=== PATIENT | male | born 1955 | race Caucasian/White ===

== ENCOUNTER 2020-02-14 08:07 | Outpatient (CLI) | payer OTHER, SELFPAY ==
--- NOTE | ~2020-02-14 | XR_ITS ---
EXAMINATION: XR chest 2V DATE: 02/14/2020 09:31 INDICATION: Asthma. Preop. TECHNIQUE: Frontal and lateral views of the chest were obtained. COMPARISON: Chest 2 views 01/02/2019 FINDINGS: There is mild atelectasis at the lung bases. No pleural effusion or pneumothorax. The heart size is normal. IMPRESSION: 1. Mild atelectasis at the lung bases. Reviewed, dictated and finalized at location B. HAND
--- NOTE | 2020-02-14 09:06 | ECG_ITS ---
Measurements Intervals [place] Rate: 53 P: 36 KS: 157 QRS: 2 QRSD: 106 T: 12 QT: 398 QTc: 375 Interpretive Statements SINUS BRADYCARDIA BASELINE ARTIFACT- I, II, III, AVR, AVL, AVF, V3 BORDERLINE ECG Electronically Signed On 02-14-2020 14:41:26 CONSTRUCTION ADMINISTRATIVE ASSISTANT by Zana Velez D.O.
[2020-02-14 10:08] LABS: Basophils Percent Auto 0.2 % (0.2-1.2); Eosinophils Absolute Auto 0.3 K/mm3 (0-0.3); Eosinophils Percent Auto 4.6 % (0-4.4); Hematocrit 42.5 % (42.0-52.0); Hemoglobin 14.8 g/dL (14.0-18.0); Immature Granulocyte Absolute 0.03 K/mm3 (0.00-0.031); Immature Granulocyte Percent A 0.5 % (0-0.5); Lymphocytes Absolute Auto 1.44 K/mm3 (0.9-3.2); Lymphocytes Percent Auto 22.3 % (18.3-44.2); Mean Corpuscular HGB Conc 34.8 g/dl (32-36); Mean Corpuscular Hemoglobin 35.2 pg (26-34); Mean Platelet Volume 9.6 fl (7.4-10.4); Monocytes Absolute Auto 0.8 K/mm3 (0.1-0.6); Monocytes Percent Auto 12.4 % (2.6-8.5); Neutrophils Absolute Auto 3.9 K/mm3 (1.3-6.7); Platelet Count Result 219 k/mm3 (150-375); Red Blood Count 4.21 M/mm3 (4.6-6.20); White Blood Count 6.5 K/mm3 (4.5-10.0)
[2020-02-14 10:22] LABS: Albumin Level 4.2 g/dL (3.5-5.1); Anion Gap 7 mmol/L (8-16); Blood Urea Nitrogen 13 mg/dL (9-20); Calcium 8.8 mg/dL (8.4-10.2); Carbon Dioxide 30 mmol/L (22-30); Chloride 103 mmol/L (98-107); Estimated Glomerular Filt Rate > 60; Glucose 84 mg/dL (75-110); Potassium 4.1 mmol/L (3.4-5.0); Sodium 140 mmol/L (137-145); Urine Cotinine NEGATIVE
[2020-02-14 11:07] LABS: Hemoglobin A1C 5.2 % (<5.7)
== END 2020-02-14 08:08 | disposition home or self-care (01) ==
LOC: ANHSURGERY 08:12
PROVIDERS: PCP Family Medicine; Visit Provider Orthopaedic Surgery
DX: M17.11 Unilateral primary osteoarthritis, right knee (principal); Z01.818 Encounter for other preprocedural examination; R91.8 Other nonspecific abnormal finding of lung field
CPT/HCPCS: 71046; 80048; 80307; 82040; 83036; 85025; 87070; 93005

== ENCOUNTER 2020-04-28 12:45 | Outpatient (CLI) | payer OTHER, SELFPAY ==
--- NOTE | ~2020-04-28 | XR_ITS ---
EXAMINATION: XR chest 2V EXAM DATE: 04/28/2020 09:27 INDICATION: M17.11 - Unilateral primary osteoarthritis, right knee/ HBP. TECHNIQUE: Frontal and lateral projections of the chest obtained and reviewed. Comparison is made to prior examination from 02/14/2020. FINDINGS: Small amount of basilar scarring/atelectasis unchanged. The lungs are otherwise clear. The re are no pleural effusions. The cardiomediastinal silhouette is within normal limits. There is no pneumothorax suspected. The bones and soft tissues are unremarkable. IMPRESSION: No acute cardiopulmonary findings. Reviewed, dictated and finalized at location A. DESIGN DRAFTSPERSON
[2020-04-28 09:30] LABS: Basophils Percent Auto 0.2 % (0.2-1.2); Eosinophils Absolute Auto 0.5 K/mm3 (0-0.3); Eosinophils Percent Auto 9.3 % (0-4.4); Hematocrit 42.4 % (42.0-52.0); Hemoglobin 14.8 g/dL (14.0-18.0); Immature Granulocyte Absolute 0.01 K/mm3 (0.00-0.031); Immature Granulocyte Percent A 0.2 % (0-0.5); Lymphocytes Absolute Auto 1.49 K/mm3 (0.9-3.2); Lymphocytes Percent Auto 26.6 % (18.3-44.2); Mean Corpuscular HGB Conc 34.9 g/dl (32-36); Mean Corpuscular Hemoglobin 35.6 pg (26-34); Mean Corpuscular Volume 101.9 fl (80-100); Mean Platelet Volume 9.5 fl (7.4-10.4); Monocytes Absolute Auto 0.6 K/mm3 (0.1-0.6); Monocytes Percent Auto 11.2 % (2.6-8.5); Neutrophils Percent Auto 52.5 % (45.5-73.1); Platelet Count Result 201 k/mm3 (150-375); Red Blood Count 4.16 M/mm3 (4.6-6.20); Red Cell Distribution Width 13.5 % (11.5-14.5); White Blood Count 5.6 K/mm3 (4.5-10.0)
[2020-04-28 09:43] LABS: Anion Gap 5 mmol/L (8-16); Blood Urea Nitrogen 15 mg/dL (9-20); Calcium 8.8 mg/dL (8.4-10.2); Carbon Dioxide 29 mmol/L (22-30); Chloride 104 mmol/L (98-107); Estimated Glomerular Filt Rate > 60; Glucose 95 mg/dL (75-110); Potassium 4.3 mmol/L (3.4-5.0); Sodium 138 mmol/L (137-145)
[2020-04-28 09:53] LABS: Urine Cotinine NEGATIVE
[2020-04-28 09:57] LABS: Hemoglobin A1C 5.2 % (<5.7)
== END 2020-04-28 12:46 ==
LOC: ANHSURGERY 05-15 12:45
PROVIDERS: Family Provider Family Medicine; PCP Family Medicine; Visit Provider Orthopaedic Surgery
DX: Z01.818 Encounter for other preprocedural examination (principal); M17.11 Unilateral primary osteoarthritis, right knee
CPT/HCPCS: 71046; 80048; 80307; 82040; 83036; 85025; 87070

== ENCOUNTER → 2020-05-10 01:06 | Outpatient (CLI) | payer OTHER, SELFPAY ==
[2020-05-10 20:38] LABS: SARS-CoV-2 RNA PCR Negative
== END ==
PROVIDERS: Family Provider Family Medicine; PCP Family Medicine; Visit Provider Orthopaedic Surgery
DX: Z01.812 Encounter for preprocedural laboratory examination (principal); Z20.822 Contact with and (suspected) exposure to COVID-19
CPT/HCPCS: C9803; U0003; U0005

== ENCOUNTER 2020-05-14 00:17 | Day surgery (SDC) | payer OTHER, SELFPAY ==
[2020-02-14 08:19] VITALS: BMI 28.3
[2020-02-14 09:05] VITALS: BP 147/89; PULSE 60; RESP 16; TEMP 37.3; O2SAT 98
[2020-04-28 08:18] VITALS: BMI 28.5
[2020-04-28 08:59] VITALS: BP 173/80; PULSE 65; RESP 16; TEMP 36.8; O2SAT 96
--- NOTE | 2020-05-12 12:21 | PM.IMHP ---
H&P: HPI History of Present Illness Date/Time: 05/12/20 12:21 Chief Complaint: Right knee DJD Narrative: Marimar Hernandez is a 65 year old male patient of Dr Barbour who presents today for a right total knee arthroplasty. Patient has been having pain in the right knee for years. It has progressively worsened over time. He has severe lateral compartment arthritis in the knee. He has been on diclofenac which does not seem to his symptoms. He has had cortisone injections in the past but none over 6 months. They do not seem to help him so he just does not utilize them. Patient feels this point she is fairly miserable on a daily basis and would rather proceed with surgery rather continue nonsurgical treatment. Review of Systems Review of Systems: All systems reviewed & are unremarkable except as noted in HPI and below PMFSH Family History Family History Mother Hypertension Social History Social History Smoking packs per day: 1 Smoking cigarettes per day: 20.0 Years smoked: 20 Smoking pack-years: 20.00 Smoking status: Former smoker Tobacco type: cigarettes Smokeless tobacco user: chewing tobacco Smoking end date: 04/04/09 Additional smoking assessment comments: STATES DID ONE PINCH OF CHEWING TOBACCO 10 DAYS AGO NOTHING SINCE Alcohol intake: current Drinks per week: 2 Spiritual care concerns: No Meds Home Medications and Allergies Home Medications Medication Instructions Recorded Confirmed Type levothyroxine 150 mcg tablet 150 mcg PO DAILY #90 tablet 10/16/19 02/14/20 Rx losartan 50 mg tablet 50 mg PO DAILY #90 tablet 10/16/19 02/14/20 Rx colchicine 0.12 mg PO PRN PRN 02/14/20 02/14/20 History diclofenac sodium 75 mg 75 mg PO BID #180 tablet 04/06/20 04/28/20 Rx tablet,delayed release turmeric 400 mg PO QAM 04/28/20 04/28/20 History Allergies Allergy/AdvReac Type Severity Reaction Status Date / Time No Known Allergies Allergy Verified 04/28/20 08:19 Exam Narrative: Exam Narrative: 65-year-old male very alert pleasant in no distress. He has an obvious valgus deformity of the right knee. Right knee range motion is from 0-135 degrees. There is no effusion. Normal stability in the knee. He has a lateral parapatellar incision which runs along the lateral border the patella and then crosses medially at the patella tendon. This is from a previous open meniscectomy in the past. His right hip has full range motion without discomfort. Normal quad strength. 2+ dorsalis pedis pulse in the foot. No numbness tingling in the right lower extremity. Resp: Auscultation: clear to auscultation bilaterally Cardio: Rate: regular rate Rhythm: regular rhythm Assessment and Plan Additional Plan patient has advanced lateral compartment arthritis in the right knee with significant symptoms on a daily basis. Again he feels he is ready to proceed with total knee arthroplasty rather continue nonsurgical treatment. Surgical procedure as well as risks and complications were discussed in detail and all questions were answered and we will proceed. He will see his primary care doctor pre-surgical clearance. He will avoid is diclofenac and any other aspirin ibuprofen products 1 week prior to surgery. Patient had a stress test done in January of 2019 which was completely normal. He has not had any episodes of chest pain since that time. His nasal swab was negative. Chem panel is all within normal limits, creatinine is 0.90 with GFR greater than 60. hemoglobin is 14.8 and platelets are 201.
--- NOTE | 2020-05-13 12:18 | WPDANESEPPF ---
Anes - Initial Pre Proc Eval Procedure: Operation Date: 05/14/20 12:00 Proposed Procedures p Right Total Knee Arthroplasty - Jb Roy MD Date/Time: 05/13/20 12:18 Surgeon: Jb Roy MD Pre Op Diagnosis: OA Right Knee Patient Data Age: 65 Gender: M Height: 1.88 m Weight: 100.8 kg Last Vital Signs Temp 36.8 C 04/28/20 08:59 Pulse 65 04/28/20 08:59 Resp 16 04/28/20 08:59 BP 173/80 H 04/28/20 08:59 Pulse Ox 96 04/28/20 08:59 Allergies Allergy/AdvReac Type Severity Reaction Status Date / Time No Known Allergies Allergy Verified 05/14/20 10:02 Home Medications Medication Instructions Recorded Confirmed Type levothyroxine 150 mcg tablet 150 mcg PO DAILY #90 tablet 10/16/19 05/14/20 Rx losartan 50 mg tablet 50 mg PO DAILY #90 tablet 10/16/19 05/14/20 Rx colchicine 0.12 mg PO PRN PRN 02/14/20 02/14/20 History diclofenac sodium 75 mg 75 mg PO BID #180 tablet 04/06/20 05/14/20 Rx tablet,delayed release turmeric 400 mg PO QAM 04/28/20 05/14/20 History Patient hx anesthesia problems: none Family hx anesthesia problems: none PMFSH Past Medical History Medical History (Updated 05/13/20 @ 12:19 by Lexx Pierson MD) Essential (primary) hypertension Hypothyroidism (acquired) Intermittent asthma Osteoarthritis Family History Family History Mother Hypertension Social History Social History Smoking packs per day: 1 Smoking cigarettes per day: 20.0 Years smoked: 20 Smoking pack-years: 20.00 Smoking status: Former smoker Tobacco type: cigarettes Smokeless tobacco user: chewing tobacco Smoking end date: 04/04/09 Additional smoking assessment comments: STATES DID ONE PINCH OF CHEWING TOBACCO 10 DAYS AGO NOTHING SINCE Alcohol intake: current Drinks per week: 2 Living arrangements: with family Spiritual care concerns: No Anes - Eval Final PreProcedure Day of Procedure 02/09/21 12:18 Patient weight: overweight Heart: regular rate and rhythm Lungs: clear to auscultation and normal air movement Airway: Mallampati scale class II Neurological: alert and oriented Last oral intake: >/= 8 hours ASA classification: II Emergent: no Anesthetic plan: proceed Anesthesia type and monitoring: general ETT Informed Consent: The patient's anesthetic plan and its attendant risks and benefits were discussed with the patient/family/POA. Questions were solicited and answers provided to the satisfaction of the patient/family/POA.
[2020-05-14] VITALS (11 sets, daily range): BP systolic 148–191; BP diastolic 86–98; PULSE 77–90; RESP 12–20; TEMP 36.3–37.6; O2SAT 92–98
--- NOTE | ~2020-05-14 | XR_ITS ---
EXAMINATION: XR knee RT 2V DATE: 05/14/2020 17:24 INDICATION: Postoperative evaluation following right total knee arthroplasty. TECHNIQUE: Anteroposterior and lateral views of the right knee were obtained. COMPARISON: None. FINDINGS: Right total knee arthroplasty without patellar resurfacing appears well seated and in near anatomic a lignment. No fractures identified. Expected postoperative subcutaneous intramedullary and intra-mick cular gas. IMPRESSION: 1. Right total knee arthroplasty, negative for postoperative purposes. Reviewed, dictated and finalized at location A. ENTRY INSTRUCTOR
[2020-05-14] MEDS: ACETAMINOPHEN 500 MG TABLET 1000 MG PO (10:06)
[2020-05-14] MEDS: LACTATED RINGERS 1,000 ML 30 ML IV CONT ×2 (10:25→17:17)
[2020-05-14] MEDS: TRANEXAMIC ACID 1,000MG/ISO100 1,000 MG/100 ML BAG 200 MG IVPB (11:45)
--- NOTE | 2020-05-14 11:52 | WPDHPUPDATE1 ---
History and Physical Update Update Date/Time: 05/14/20 11:52 History and Physical has been reviewed, including an updated exam of the patient. There are NO changes in the patient's condition. Risks, benefits, and alternatives have been discussed and questions answered. Patient agrees to proceed with procedure.
[2020-05-14] MEDS: ceFAZolin 2 GM/D5W 50 ML 2 GM/50 ML BAG IVPB (12:47)
[2020-05-14] MEDS: ceFAZolin SODIUM 1 GM VIAL 3 GM IRRIGATION (13:34)
[2020-05-14] MEDS: ceFAZolin SODIUM 1 GM VIAL IV PUSH (15:59)
--- NOTE | 2020-05-14 17:12 | PM.PROC ---
Procedure Note - Detailed Date of procedure: 05/14/20 Pre-op diagnosis: OA Right Knee Severe lateral compartment osteoarthritis right knee, status post open lateral meniscectomy decades Post-op diagnosis: same Procedure performed: Right total knee arthroplasty. Description of procedure: Patient was brought to the operating room and general anesthesia was administered. The right knee was prepped draped usual fashion. He had full extension under anesthesia with a negative bounce test. He received 2 g of Ancef weight based vancomycin 1 g of tranexamic acid preoperatively. Limb was exsanguinated and tourniquet elevated to 250 mmHg. We had marked the previous anterolateral incision before applying the [place] drapes. Prior to putting the tourniquet up by etienne the incision that I intended open to use the previous anterolateral incision. I notice that with the knee flexed up to 100 and 20?, this previous lateral incision was far lateral at least 2 cm lateral to lateral margin of the patella and I did not feel that this anterolateral incision was usable for an anteromedial arthrotomy without making a huge anterior flap fit think would put the skin and more danger then make an anteromedial incision with a skin bridge. We therefore marked out an anteromedial incision. I cheated a little bit more medial proximally so it was over the vastus medialis approximately 3 cm medial to the midline suprapatellar and about a cm medial to tibial tubercle and overlying the medial margin of the patella and this gave us a 7 cm skin bridge. Also since he had intact cartilage over the patella I plan to not elevate the skin off of the anterior patella for patellar resurfacing procedures further preserving the blood supply to skin over the patella. After elevation of the tourniquet and 8 in longitudinal incision was made as described above. The quadriceps tendon medial patella and the medial edge of patellar tendon were exposed and a median parapatellar arthrotomy made in usual fashion. As he had a grade 1 valgus deformity we did not release the medial capsule only the anteromedial release necessary for standard exposure. The patella had normal articular cartilage with minimal chondrocalcinosis on its surface with no thinning or cartilage loss and I felt it was most suitable for non resurfacing. Infrapatellar and suprapatellar fat pads were excised and a quadriceps synovectomy carried out. A guide angelica was inserted down the femoral canal after aspiration of canal contents using the 5 degree valgus cutting bushing 11 mm of bone removed the distal femur medially. This removed about 6 laterally. There was eburnation of the distal aspect of lateral femoral condyle as well as the posterior lateral femoral condyle was some bone loss and grooving there. Whitesides line was drawn on the femur. Next the tibial plateau was cut. We made a skim cut just 1 mm under the low point of the lateral tibial plateau which gave us bony surface without defect across the entire tibial plateau. The PCL was recessed meniscal remnants excised. The flexion gap was assessed now and we found that a 17 the at scratch and this could be a 14 mm spacer block could be put in the lateral side of the knee at 90? of flexion which was snug and medially the gap was 6 or 7 mm. Alignment of the tibial cut was confirmed to be accurate. The femur was sized with the adjustable posterior referencing sizing guide which we set to 5? of external rotation and additionally we dropped the foot plate laterally 2 mm off the worn portion of posterior lateral femoral condyle which matched Whitesides line exactly. The femur was cut to a size vanguard 75 which fit line to line anterior posterior and under sized 1 mm medial and lateral on width. In flexion we had a little extra plate with 10 mm CR insert but equal gaps medially and laterally at 90? with a Veliz elevator. In extension the knee almost came out to full extension no plate medially or laterally
[2020-05-14] MEDS: ONDANSETRON INJ 4 MG/2 ML VIAL IV PUSH ×2 (18:00→21:11)
[2020-05-14] MEDS: DEXTROSE 5%/0.45% SOD CHL 1,000 ML 100 ML IV CONT (18:45)
--- NOTE | 2020-05-14 19:00 | WPDCN ---
Assessment and Plan Assessment and plan (1) Osteoarthritis of right knee: Code(s): M17.11 - Unilateral primary osteoarthritis, right knee Status: Acute (2) Essential hypertension: Code(s): I10 - Essential (primary) hypertension Status: Chronic (3) Hypothyroidism: Code(s): E03.9 - Hypothyroidism, unspecified Status: Chronic (4) Gout: Code(s): M10.9 - Gout, unspecified Status: Chronic (5) Intermittent asthma: Code(s): J45.20 - Mild intermittent asthma, uncomplicated Status: Acute Additional Plan The patient is postoperative day #0, status post right total knee arthroplasty. Wound care and pain control will be deferred to Dr. Roy as well as DVT prophylaxis. Blood pressures have been running high this evening and it is noted that he did not take his losartan this morning. I am going to give him a dose of losartan at this time and resume his regular dose tomorrow with close monitoring of his blood pressures. Continue levothyroxine check TSH. We will also check baseline labs in a.m.. No acute issues with regard to gout or asthma. Thank you for allowing us to participate in this patient's care. Please do not hesitate to contact us with any questions. We will follow with you. Supervising physician for this medical consultation is Dr. Juliana Abbasi. HPI Data of Consult Date/Time: 05/14/20 19:00 Requesting Physician: Jb Roy MD Primary Care Provider: Nicolas Barbour MD Family Provider: Nicolas Barbour MD Consult Narrative Narrative: This is a 65-year-old male with osteoarthritis, gout, hypertension, and hypothyroidism whom the hospitalist service has been consulted for management of his medical conditions postoperatively. He has had longstanding pain in his right knee not amenable to conservative outpatient treatment thus he elected for replacement today. His surgery was performed under general anesthesia with no immediate complications documented and an estimated blood loss of 250 milliliters. His pain is well controlled at the time of my evaluation and his main complaint at this time is a of a dull headache which he attributes to his blood pressure being high. He denies paresthesias, skin color, and temperature changes distal to the surgical site. He also denies postoperative fever, chills, sweats, nausea, vomiting, chest pain, and shortness of breath. Review of Systems Review of Systems: Narrative: Twelve systems were reviewed with pertinent positives and negatives as per HPI. No recent cold or flu symptoms. No exposure to those positive for COVID-19. He has no history of venous thromboembolism. He believes that his blood pressure is usually well controlled, and will only have a headache when it is elevated. He apparently did not take his antihypertensives this morning before surgery and is pressures have been running high today. Except as documented, all other systems were reviewed and are negative. [facility] Past Medical History Medical History (Updated 05/14/20 @ 19:11 by Sydni Yao PA-C) Essential hypertension Gout Hypothyroidism Intermittent asthma Osteoarthritis Surgical History Surgical History (Updated 05/14/20 @ 19:10 by Sydni Yao PA-C) History of appendectomy History of arthroplasty of right knee (~05/14/20) History of orthopedic surgery Including open lateral meniscectomy on the right knee, left ankle reconstruction, and right although surgery. Family History Family History Mother Hypertension Social History Social History (Updated 05/14/20 @ 19:10 by Sydni Yao PA-C) Social History: Surrogate decision maker: Chiquita Mary, spouse. Code status: Full code. Smoking packs per day: 1 Smoking cigarettes per day: 20.0 Years smoked: 20 Smoking pack-years: 20.00 Smoking status: Former smoker Tobacco type: cigarettes Sm
[2020-05-14] MEDS: LOSARTAN POTASSIUM 25 MG TABLET PO (20:27)
[2020-05-14] MEDS: oxyCODONE HCL (*CRX) 5 MG TAB IR PO (20:28)
[2020-05-15] VITALS: BP 178/88; PULSE 88; RESP 20; TEMP 36.6; O2SAT 96
[2020-05-15] MEDS: oxyCODONE HCL (*CRX) 5 MG TAB IR PO ×4 (00:35→13:06)
[2020-05-15] MEDS: ACETAMINOPHEN 500 MG TABLET 1000 MG PO ×3 (00:35→12:35)
[2020-05-15] MEDS: hydrALAZINE HCL 20 MG/ML VIAL 10 MG IV PUSH (01:13)
[2020-05-15 02:00] VITALS: BP 159/89; PULSE 82; RESP 18; TEMP 36.6; O2SAT 96
[2020-05-15 03:56] VITALS: BP 140/83; PULSE 88; RESP 20; TEMP 36.1; O2SAT 96
[2020-05-15] MEDS: ONDANSETRON INJ 4 MG/2 ML VIAL IV PUSH (04:11)
--- NOTE | 2020-05-15 05:20 | PC.NURSE ---
Addendum entered by Arley Churchill RN 05/15/20 06:30: Pt tolerated cup of water with no nausea, he was given crackers following this and still denies nausea. Morning PO meds will be given at this time. Original Note: Pt has thrown up twice this evening after drinking water. Water has been held for 3 hours since last emesis. Pt denies any nausea at this time and will be given small cup of water to see if he is able to tolerate clear liquids.
[2020-05-15 05:58] LABS: Basophils Percent Auto 0.1 % (0.2-1.2); Hematocrit 41.2 % (42.0-52.0); Hemoglobin 14.3 g/dL (14.0-18.0); Immature Granulocyte Absolute 0.08 K/mm3 (0.00-0.031); Immature Granulocyte Percent A 0.5 % (0-0.5); Lymphocytes Absolute Auto 0.92 K/mm3 (0.9-3.2); Mean Corpuscular HGB Conc 34.7 g/dl (32-36); Mean Corpuscular Hemoglobin 34.7 pg (26-34); Mean Platelet Volume 9.4 fl (7.4-10.4); Monocytes Absolute Auto 1.1 K/mm3 (0.1-0.6); Monocytes Percent Auto 7.2 % (2.6-8.5); Neutrophils Absolute Auto 13.1 K/mm3 (1.3-6.7); Neutrophils Percent Auto 86.2 % (45.5-73.1); Platelet Count Result 258 k/mm3 (150-375); Red Blood Count 4.12 M/mm3 (4.6-6.20); Red Cell Distribution Width 12.8 % (11.5-14.5); White Blood Count 15.2 K/mm3 (4.5-10.0)
[2020-05-15 06:08] LABS: Anion Gap 8 mmol/L (8-16); Blood Urea Nitrogen 13 mg/dL (9-20); Calcium 8.8 mg/dL (8.4-10.2); Carbon Dioxide 25 mmol/L (22-30); Chloride 102 mmol/L (98-107); Estimated CRCL calculation 108 ml/min; Estimated Glomerular Filt Rate > 60; Glucose 162 mg/dL (75-110); Sodium 135 mmol/L (137-145)
[2020-05-15] MEDS: LEVOTHYROXINE SODIUM 150 MCG TABLET PO (06:28)
[2020-05-15] MEDS: DEXTROSE 5%/0.45% SOD CHL 1,000 ML 100 ML IV CONT (08:12)
[2020-05-15] MEDS: polyethylene glycoL 3350 17 GM POWD.PACK PO (08:13)
[2020-05-15] MEDS: SENNA/DOCUSATE SODIUM TABLET 2 TAB PO (08:14)
[2020-05-15] MEDS: CELECOXIB 200 MG CAPSULE PO (08:15)
[2020-05-15] MEDS: APIXABAN 2.5 MG TABLET PO (08:15)
[2020-05-15] MEDS: LOSARTAN POTASSIUM 50 MG TABLET PO (08:16)
--- NOTE | 2020-05-15 08:57 | PM.PNORT ---
Progress Note: A&P Additional Plan POD 1 alert BP was running high, doing better this am, pt will monitor at home and call PCP if stays high, was having some issues prior to surg, pain is well controlled, pt is up working with PT now, mild swelling to knee, NVI, plan to have pt work with PT this afternoon then send home Subjective Subjective Date/Time Seen: 05/15/20 08:57 Objective Data Vital Signs Vital Signs: Vital Signs - 24 hr 05/14/20 10:10 05/14/20 17:17 05/14/20 17:30 Temperature 36.3 C L 37.6 C Pulse Rate 85 90 86 Respiratory Rate 16 20 14 Blood Pressure 186/87 H 148/90 H 161/93 H Pulse Oximetry 98 97 95 05/14/20 17:45 05/14/20 18:00 05/14/20 18:10 Temperature Pulse Rate 79 77 79 Respiratory Rate 15 15 14 Blood Pressure 151/90 H 159/86 H 158/89 H Pulse Oximetry 94 94 94 05/14/20 18:35 05/14/20 18:50 05/14/20 20:00 Temperature 36.6 C 36.3 C L 36.4 C L Pulse Rate 78 81 84 Respiratory Rate 16 12 20 Blood Pressure 149/86 H 172/91 H 191/96 H Pulse Oximetry 92 94 96 05/14/20 21:00 05/14/20 22:43 05/15/20 00:00 Temperature 36.3 C L 36.6 C Pulse Rate 81 88 Respiratory Rate 18 20 Blood Pressure 173/98 H 178/88 H Pulse Oximetry 96 96 96 05/15/20 02:00 05/15/20 03:56 Temperature 36.6 C 36.1 C L Pulse Rate 82 88 Respiratory Rate 18 20 Blood Pressure 159/89 H 140/83 Pulse Oximetry 96 96 Intake/Output Intake/Output: Intake & Output 05/12/20 05/13/20 05/14/20 05/15/20 23:59 23:59 23:59 23:59 Intake Total 1250 1850 Output Total 700 1775 Balance 550 75 Meds/Results Medications: Active Medications Generic Name Dose Route Start Last Admin Trade Name Freq PRN Reason Stop Dose Admin Acetaminophen 1,000 mg 05/15/20 00:00 05/15/20 06:28 Acetaminophen 500 Mg Tablet PO 1,000 mg Q6HR LEWIS Administration Acetaminophen 650 mg 05/14/20 20:09 Acetaminophen 325 Mg Tablet PO Q4H PRN Mild Pain (1-3) or Fever Apixaban 2.5 mg 05/15/20 09:00 05/15/20 08:15 Apixaban 2.5 Mg Tablet PO 05/26/20 21:01 2.5 mg Q12HR LEWIS Administration Celecoxib 200 mg 05/15/20 08:00 05/15/20 08:15 Celecoxib 200 Mg Capsule PO 200 mg DAILY@0800 LEWIS Administration Hydralazine HCl 10 mg 05/15/20 00:54 05/15/20 01:13 Hydralazine Hcl 20 Mg/Ml Vial IV PUSH 10 mg Q6H PRN Administration SBP > 165 or DBP > 105 Cefazolin Sodium 1 gm in 50 mls @ 100 mls/hr 05/14/20 21:00 05/15/20 06:30 Ancef 1 Gm/D5w 50 Ml Pm IVPB 05/15/20 13:29 Infused Q8H LEWIS Infusion Dextrose/Sodium Chloride 1,000 mls @ 100 mls/hr 05/14/20 18:11 05/15/20 08:12 Dextrose 5% Sodium Chloride 0.45% IV CONT 100 mls/hr .Q10H LEWIS Administration Vancomycin HCl 1,000 mg in 250 mls @ 250 mls/hr 05/14/20 22:00 05/14/20 23:11 Vancomycin 1,000 Mg/D5w 250 Ml IVPB 05/15/20 10:59 Infused Q12H LEWIS Infusion Levothyroxine Sodium 150 mcg 05/15/20 06:30 05/15/20 06:28 Levothyroxine Sodium 150 Mcg Tablet PO 150 mcg DAILY@0630 LEWIS Administration Losartan Potassium 50 mg 05/15/20 09:00 05/15/20 08:16 Losartan Potassium 50 Mg Tablet PO 50 mg DAILY LEWIS Administration Naloxone HCl 0.1 mg 05/14/20 18:11 Naloxone Hcl 0.4 Mg/Ml Vial IV PUSH Q2M PRN Opiate Reversal Ondansetron HCl 4 mg 05/14/20 21:00 05/15/20 04:11 Ondansetron Inj 4 Mg/2 Ml Vial IV PUSH 4 mg Q6H PRN Administration Nausea And Vomiting Oxycodone HCl 5 mg 05/14/20 21:00 05/15/20 08:15 Oxycodone Hcl (*Crx) 5 Mg Tab Ir PO 5 mg Q4HR LEWIS Administration Oxycodone HCl 5 mg 05/14/20 18:11 Oxycodone Hcl (*Crx) 5 Mg Tab Ir PO Q4H PRN Pain Rated 7-10 Polyethylene Glycol 17 gm 05/15/20 09:00 05/15/20 08:13 Polyethylene Glycol 3350 17 Gm Powd.Pack PO 17 gm QAM LEWIS Administration Senna/Docusate Sodium 2 tab 05/15/20 09:00 05/15/20 08:14 Senna/Docusate Sodium Tablet PO 2 tab BID LEWIS Administration Radiology Results:
--- NOTE | 2020-05-15 09:10 | PM.DS ---
DS: Admitting Diagnosis Admitting Diagnosis Admitting Diagnosis: right knee DJD DS: Summary Hospital Course Hospital Course: uneventful Time Spent with Patient Time attestation: Total time spent providing and/or coordinating discharge services: DS: Data Data Completed and Pending Labs on day of discharge: Labs from last 24 hours 05/15/20 05/15/20 05/15/20 05:32 05:32 05:32 WBC 15.2 H RBC 4.12 L Hgb 14.3 Hct 41.2 L MCV 100.0 MCH 34.7 H MCHC 34.7 RDW 12.8 Plt Count 258 MPV 9.4 Immature Gran % (Auto) 0.5 Neut % (Auto) 86.2 H Lymph % (Auto) 6.0 L [place] % (Auto) 7.2 Eos % (Auto) 0.0 Baso % (Auto) 0.1 L Lymph # (Auto) 0.92 [place] # (Auto) 1.1 H Eos # (Auto) 0.0 Baso # (Auto) 0.0 Abs Immat Gran (auto) 0.08 H Absolute Neuts (auto) 13.1 H Absolute Nucleated RBC 0.0 Nucleated RBC % 0.0 Sodium 135 L Potassium 4.0 Chloride 102 Carbon Dioxide 25 Anion Gap 8 BUN 13 Creatinine 0.70 Estim Creat Clear Calc 108 Estimated GFR > 60 Glucose 162 H Calcium 8.8 TSH (Reflex) 1.910 Blood Type Antibody Screen 05/14/20 10:24 WBC RBC Hgb Hct MCV MCH MCHC RDW Plt Count MPV Immature Gran % (Auto) Neut % (Auto) Lymph % (Auto) [place] % (Auto) Eos % (Auto) Baso % (Auto) Lymph # (Auto) [place] # (Auto) Eos # (Auto) Baso # (Auto) Abs Immat Gran (auto) Absolute Neuts (auto) Absolute Nucleated RBC Nucleated RBC % Sodium Potassium Chloride Carbon Dioxide Anion Gap BUN Creatinine Estim Creat Clear Calc Estimated GFR Glucose Calcium TSH (Reflex) Blood Type O Positive Antibody Screen Negative Discharge Plan Discharge Patient Disposition: Home, Self-Care Discharge Instructions: JB [facility] [place] [id number] POST-OPERATIVE DISCHARGE INSTRUCTIONS TOTAL KNEE ARTHROPLASTY 1. When resting, lie on back with leg elevated above hear to minimize swelling. Significant swelling could indicate a blood clot and if this occurs call the office (or go to the ER) to have a venous ultrasound. 2. Do exercise 5 times a day. 3. Do not sit with leg down except for meals. 4. Wound Care: Nursing will give additional dressings at discharge. Patient to change dressing at home 1 week from surgery, then maintain until seen in office. 5. May shower with dressing in place. 6. Follow weight bearing status instructions. Patient Instructions: Apixaban (By mouth), Precautions after Total Joint Replacement Surgery (GEN), Knee Replacement (GEN) Follow-up/Referrals: Jb Roy MD [Physician] - Keep Reg. Scheduled Appt. Discharge Medications: New acetaminophen 500 mg Tablet 1,000 mg PO Q6HR Qty: 90 RF: 0 Eliquis 2.5 mg Tablet 2.5 mg PO Q12HR Qty: 28 RF: 0 celecoxib [Celebrex] 200 mg Capsule 200 mg PO DAILY@0800 Qty: 14 RF: 0 sennosides-docusate sodium [Senokot-S] 8.6-50 mg Tablet 2 tab-cap PO BID Qty: 60 RF: 0 polyethylene glycol 3350 [Miralax] 17 gram Powder In Packet 17 g PO QAM Qty: 30 RF: 0 oxycodone 5 mg Tablet 5 mg PO Q4HR Qty: 50 RF: 0 aspirin [Adult Low Dose Aspirin] 81 mg tablet,delayed release (DR/EC) 81 mg PO BID Qty: 60 RF: 0 Continued colchicine 0.6 mg capsule 0.12 mg PO PRN PRN (Reason: GOUT) RF: 0 turmeric 400 mg Capsule 400 mg PO QAM RF: 0 levothyroxine 150 mcg tablet 150 mcg PO DAILY Qty: 90 RF: 2 losartan 50 mg tablet 50 mg PO DAILY Qty: 90 RF: 2 Discontinued diclofenac sodium 75 mg tablet,delayed release (DR/EC) 75 mg PO BID Qty: 180 RF: 0
--- NOTE | 2020-05-15 09:11 | PM.DS ---
DS: Admitting Diagnosis Admitting Diagnosis Admitting Diagnosis: right knee DJD DS: Summary Hospital Course Hospital Course: stable Time Spent with Patient Time attestation: 65-year-old male who underwent right total knee arthroplasty on 05/14/2020. Underwent procedure without any complications. Postoperatively he was hypertensive, indeed not take his meds the morning of surgery. His losartan has been restarted and his blood pressure is more back at baseline on postop day 1. Otherwise patient is doing well. He has been afebrile. His wound is dry and he has an Aquacel dressing over it. He is weight-bearing as tolerated. He is on Eliquis DVT prophylaxis. He is on Celebrex once a day as well as schedule Tylenol and oxycodone for pain. He will also go home on MiraLax and Senokot for constipation. Patient was advised to keep leg elevated at home prevent swelling to his exercise on a regular basis. These were not monitor his blood pressure home, if there is any increase he will contact his primary care doctor for adjustment of his medications. The patient may discharge home on 05/15. He was advised any questions or concerns once he goes home he is to call the office otherwise will see him at his appointment date. His outpatient therapy starting next Tuesday. DS: Data Data Completed and Pending Labs on day of discharge: Labs from last 24 hours 05/15/20 05/15/20 05/15/20 05:32 05:32 05:32 WBC 15.2 H RBC 4.12 L Hgb 14.3 Hct 41.2 L MCV 100.0 MCH 34.7 H MCHC 34.7 RDW 12.8 Plt Count 258 MPV 9.4 Immature Gran % (Auto) 0.5 Neut % (Auto) 86.2 H Lymph % (Auto) 6.0 L [place] % (Auto) 7.2 Eos % (Auto) 0.0 Baso % (Auto) 0.1 L Lymph # (Auto) 0.92 [place] # (Auto) 1.1 H Eos # (Auto) 0.0 Baso # (Auto) 0.0 Abs Immat Gran (auto) 0.08 H Absolute Neuts (auto) 13.1 H Absolute Nucleated RBC 0.0 Nucleated RBC % 0.0 Sodium 135 L Potassium 4.0 Chloride 102 Carbon Dioxide 25 Anion Gap 8 BUN 13 Creatinine 0.70 Estim Creat Clear Calc 108 Estimated GFR > 60 Glucose 162 H Calcium 8.8 TSH (Reflex) 1.910 Blood Type Antibody Screen 05/14/20 10:24 WBC RBC Hgb Hct MCV MCH MCHC RDW Plt Count MPV Immature Gran % (Auto) Neut % (Auto) Lymph % (Auto) Dod[place] % (Auto) Eos % (Auto) Baso % (Auto) Lymph # (Auto) [place] # (Auto) Eos # (Auto) Baso # (Auto) Abs Immat Gran (auto) Absolute Neuts (auto) Absolute Nucleated RBC Nucleated RBC % Sodium Potassium Chloride Carbon Dioxide Anion Gap BUN Creatinine Estim Creat Clear Calc Estimated GFR Glucose Calcium TSH (Reflex) Blood Type O Positive Antibody Screen Negative Discharge Plan Discharge Patient Disposition: Home, Self-Care Discharge Instructions: [facility] [address] [place] [address] POST-OPERATIVE DISCHARGE INSTRUCTIONS TOTAL KNEE ARTHROPLASTY 1. When resting, lie on back with leg elevated above hear to minimize swelling. Significant swelling could indicate a blood clot and if this occurs call the office (or go to the ER) to have a venous ultrasound. 2. Do exercise 5 times a day. 3. Do not sit with leg down except for meals. 4. Wound Care: Nursing will give additional dressings at discharge. Patient to change dressing at home 1 week from surgery, then maintain until seen in office. 5. May shower with dressing in place. 6. Follow weight bearing status instructions. Patient Instructions: Apixaban (By mouth), Precautions after Total Joint Replacement Surgery (GEN), Knee Replacement (GEN) Follow-up/Referrals: Jb Roy MD [Physician] - Keep Reg. Scheduled Appt. Discharge Medications: New acetaminophen 500 mg Tablet 1,000 mg PO Q6HR Qty: 90 RF: 0 Eliquis 2.5 mg Tablet 2.5 mg PO Q12HR Qty: 2
--- NOTE | 2020-05-15 09:22 | P.PNAN_ITS ---
Anes - Prog Note Post-Op Date/Time: 05/15/20 09:22 Cardiovascular status: normal Respiratory status: normal Airway patency: baseline Mental status: baseline Post-Op hydration status: normal Vital Signs: Last Vital Signs Temp 36.1 C L 05/15/20 03:56 Pulse 88 05/15/20 03:56 Resp 20 05/15/20 03:56 BP 140/83 05/15/20 03:56 Pulse Ox 96 05/15/20 03:56 Pain Score (VAS): 3 I/O: Intake & Output 05/14/20 05/15/20 05/15/20 23:59 07:59 15:59 Intake Total 600 1850 Output Total 700 1775 Balance -100 75 Laboratory Tests 05/15/20 05:32 05/15/20 05:32 05/14/20 05/15/20 05/15/20 10:24 05:32 05:32 WBC 15.2 H RBC 4.12 L Hgb 14.3 Hct 41.2 L MCV 100.0 MCH 34.7 H MCHC 34.7 RDW 12.8 Plt Count 258 MPV 9.4 Immature Gran % (Auto) 0.5 Neut % (Auto) 86.2 H Lymph % (Auto) 6.0 L [place] % (Auto) 7.2 Eos % (Auto) 0.0 Baso % (Auto) 0.1 L Lymph # (Auto) 0.92 [place] # (Auto) 1.1 H Eos # (Auto) 0.0 Baso # (Auto) 0.0 Abs Immat Gran (auto) 0.08 H Absolute Neuts (auto) 13.1 H Absolute Nucleated RBC 0.0 Nucleated RBC % 0.0 Sodium 135 L Potassium 4.0 Chloride 102 Carbon Dioxide 25 Anion Gap 8 BUN 13 Creatinine 0.70 Estim Creat Clear Calc 108 Estimated GFR > 60 Glucose 162 H Calcium 8.8 TSH (Reflex) Blood Type O Positive Antibody Screen Negative 05/15/20 05:32 WBC RBC Hgb Hct MCV MCH MCHC RDW Plt Count MPV Immature Gran % (Auto) Neut % (Auto) Lymph % (Auto) [place] % (Auto) Eos % (Auto) Baso % (Auto) Lymph # (Auto) [place] # (Auto) Eos # (Auto) Baso # (Auto) Abs Immat Gran (auto) Absolute Neuts (auto) Absolute Nucleated RBC Nucleated RBC % Sodium Potassium Chloride Carbon Dioxide Anion Gap BUN Creatinine Estim Creat Clear Calc Estimated GFR Glucose Calcium TSH (Reflex) 1.910 Blood Type Antibody Screen Post-procedural complaints: none Patient Feedback: Patient satisfied with anesthetic care.
--- NOTE | 2020-05-15 09:32 | PM.IMPN ---
Progress Note: A&P Assessment and Plan (1) Osteoarthritis of right knee: Code(s): M17.11 - Unilateral primary osteoarthritis, right knee Status: Acute Assessment and Plan: He is postoperative day #1, status post right total knee arthroplasty by Dr. Roy. He is doing well with pain well-controlled. Blood pressures have improved. Wound care and pain control will be deferred to Dr. Roy as well as DVT prophylaxis Disposition per primary service (2) Essential hypertension: Code(s): I10 - Essential (primary) hypertension Status: Chronic Assessment and Plan: Blood pressures were elevated post-operatively, likely secondary to a combination of not taking his losartan and pain. He was given 1 dose of losartan with improvement. BP has improved with most recent reading of 140/83. Continue losartan Recommend that he keep a blood pressure log and review these readings with his PCP. He needs to call his PCP if his blood pressures are persistently elevated at home. (3) Hypothyroidism: Code(s): E03.9 - Hypothyroidism, unspecified Status: Chronic Assessment and Plan: TSH is normal at 1.91. Continue levothyroxine (4) Gout: Code(s): M10.9 - Gout, unspecified Status: Chronic Assessment and Plan: Chronic with no acute issues. He takes colchicine PRN which will be continued at discharge (5) Intermittent asthma: Code(s): J45.20 - Mild intermittent asthma, uncomplicated Status: Acute Assessment and Plan: No acute issues. Lungs are clear to auscultation without wheezing. Continue outpatient follow-up Subjective Date/time seen: 05/15/20 09:32 Mr. Hernandez is a 65 y.o. male with PMH significant for hypertension, hypothyroidism, and osteoarthritis who is seen for medical management s/p right total knee arthroplasty on 05/14/20 by Aníbal Roy. He is doing very well post-operatively. His pain is well controlled and he notes no significant difficulty with transfers. He has not worked with PT yet today but did well with OT. He did require straight cath yesterday due to urinary retention but notes that he has been voiding fine since. He is not passing any gas yet but notes no abdominal discomfort. His headache resolved with improved blood pressure. He reports some mild dyspnea and has asthma with prior smoking hx but reports no increased dyspnea from his baseline, no chest pain, and no palpitations. He did strain his pectoralis muscle 1 week ago but this continues to improve. He has no other concerns. Review of Systems Review of Systems: All systems reviewed & are unremarkable except as noted in HPI and below Exam Narrative: Exam Narrative: General: Very pleasant, well-developed, and well-nourished 65 y.o. male who is sitting in the chair at the bedside eating breakfast in no acute distress. HEENMT: Normocephalic and atraumatic. Sclera anicteric. Conjunctivae without injection or exudate. EOMI. Oral mucosa moist. Neck: Supple. Cardiac: Regular rate and rhythm. S1 and S2 normal. Lungs: Effort normal. Lungs are clear to auscultation bilaterally. Abdomen: Positive bowel sounds. Abdomen is soft, non-distended, and non-tender. Musculoskeletal: Right knee with very mild swelling. No warmth. Mild tenderness. Good passive ROM. Tenderness to pectoralis muscle. Extremities: Warm and well-perfused. GRACE hose in place. No significant lower extremity edema or calf tenderness. DP and PT 2+. Neurological: Alert. No focal neurological deficits noted to casual conversation. Speech is clear. Skin: Right hip dressing c/d/i. Psychiatric: Judgment and insight intact. Pleasant mood and appropriate affect. Objective Data Vital Signs Vital Signs: Vital Signs - 24 hr 05/14/20 10:10 05/14/20 17:17 05/14/20 17:30 Temperature 97.4 F L 99.6 F Pulse Rate 85 90 86 Respiratory Rate 16 20 14 Blood Pressure 186/87 H 148/90 H 161
[2020-05-15 09:52] VITALS: O2SAT 92
[2020-05-15 10:50] VITALS: BP 120/76; PULSE 88; RESP 16; TEMP 36.4; O2SAT 96
--- NOTE | 2020-05-15 13:49 | PC.NURSE ---
On 05/15/20, the student, [Heena Tyson ], provided care and completed [facility] documentation on this patient. I have reviewed the student's documentation and agree with the findings.
[2020-05-15 14:16] VITALS: BP 141/73; PULSE 93; RESP 18; TEMP 36.4; O2SAT 94
--- NOTE | 2020-05-15 14:24 | PC.NURSE ---
On 05/15/20, the student, [ Heena Tyson], provided care and completed [facility] documentation on this patient. I have reviewed the student's documentation and agree with the findings.
== END 2020-05-15 15:45 | disposition home or self-care (01) ==
LOC: ANHSURGERY 09:52 → ANH2MED 18:20
PROVIDERS: Physician Assistant; Family Provider Family Medicine; PCP Family Medicine; Visit Provider Orthopaedic Surgery
PROC: (CPT 27447; principal; 2020-05-14 12:00)
DX: M17.11 Unilateral primary osteoarthritis, right knee (principal); I10 Essential (primary) hypertension; E03.9 Hypothyroidism, unspecified; J45.20 Mild intermittent asthma, uncomplicated; Z72.0 Tobacco use; M10.9 Gout, unspecified
CPT/HCPCS: 27447; 36415; 71046; 73560; 80048; 80307; 82040; 83036; 84443; 85025; 86850; 86900; 86901; 87070; 97110; 97116; 97161; 97165; 97530; 97535; A9270; C1713; C1776; C9803; J0171; J0360; J0690; J1100; J1170; J2250; J2270; J2405; J2704; J2795; J3010; J3370; J7120; U0003; U0005

== ENCOUNTER 2020-06-11 12:55 | Outpatient (CLI) | payer OTHER, SELFPAY ==
[2020-06-11 13:30] LABS: Add Urine Microscopic? YES; Appearance Urine Cloudy (Clear); Bacteria Urine Trace /hpf; Bilirubin Urine 1+ (Negative); Blood Urine Negative (Negative); Color Urine Amber (Yellow); Glucose Urine UA Negative (Negative); Ketones Urine Trace mg/dL (Negative); Leukocyte Esterase Ur Negative LEU/UL (NEGATIVE); Mucus Urine Heavy /lpf; Nitrate Urine Negative (Negative); Protein Urine 2+ mg/dL (Negative); RBC Urine 0-2 /hpf (0-2)
[2020-06-11 13:31] LABS: Specific Grav Ur 1.036 (1.001-1.035)
== END 2020-06-11 12:56 | disposition home or self-care (01) ==
PROVIDERS: PCP Family Medicine; Visit Provider Orthopaedic Surgery
DX: R35.1 Nocturia (principal)
CPT/HCPCS: 81001; 87086

== ENCOUNTER 2021-03-30 13:06 | Outpatient (CLI) | payer OTHER, SELFPAY ==
--- NOTE | ~2021-03-30 | XR_ITS ---
EXAMINATION: XR ankle RT 2V DATE: 03/30/2021 13:30 INDICATION: Unspecified right ankle pain TECHNIQUE: Anteroposterior and lateral views of the right ankle were obtained. COMPARISON: None. FINDINGS: Bone alignment is normal. No fracture. Mild osteoarthritis at the right ankle, subtalar joint and a f ew tarsal metatarsal joints. Small plantar calcaneal spur. Large right ankle joint effusion with incr eased soft tissue density anterior to the tibiotalar joint line. Prominent soft tissue swelling about the lateral malleolus. IMPRESSION: 1. Nonspecific large right ankle joint effusion and prominent soft tissue swelling about the lateral malleolus. No acute osseous abnormality. 2. Mild polyarticular osteoarthritis at the right ankle, mid and hindfoot. Reviewed, dictated and finalized at location . MOTIVE PARTS INTERPRETER IMPRESSION: 1. Nonspecific large right ankle joint effusion and prominent soft tissue swell ing about the lateral malleolus. No acute osseous abnormality. 2. Mild polyarticular osteoarthritis at the right ankle, mid and hindfoot.
--- NOTE | ~2021-03-30 | XR_ITS ---
EXAMINATION: XR elbow RT 2V DATE: 03/30/2021 13:30 INDICATION: Right elbow pain TECHNIQUE: Anteroposterior and lateral views of the right elbow were obtained. COMPARISON: None. FINDINGS: Alignment is normal. No fracture. Mild right elbow osteoarthritis compartment characterized by mild n onuniform joint space narrowing and small marginal osteophytes involving all 3 compartments of the ri ght elbow joint. No erosions. A right elbow joint effusion is suggested with displacement of the ante rior but not the posterior fat pad. Small heterotopic ossicles at the lateral aspect of the right elb ow. IMPRESSION: 1. Mild osteoarthritis throughout the right elbow with suggestion of nonspecific right elbow joint ef fusion. Reviewed, dictated and finalized at location . GEMENT TRAINER IMPRESSION: 1. Mild osteoarthritis throughout the right elbow with suggestion of nonspecifi c right elbow joint effusion.
== END 2021-03-30 13:07 | disposition home or self-care (01) ==
LOC: ANHIMG 13:12
PROVIDERS: PCP Family Medicine; Visit Provider Nurse Practitioner Family
DX: M19.021 Primary osteoarthritis, right elbow (principal); M19.071 Primary osteoarthritis, right ankle and foot; M25.471 Effusion, right ankle; M79.89 Other specified soft tissue disorders; M77.31 Calcaneal spur, right foot
CPT/HCPCS: 73070; 73600

== ENCOUNTER 2021-04-29 10:34 | Outpatient (CLI) | payer OTHER, SELFPAY ==
--- NOTE | ~2021-04-29 | XR_ITS ---
EXAMINATION: XR md joint inject/asp w image DATE: 04/29/2021 11:46 INDICATION: Right elbow osteoarthritis. TECHNIQUE: A time-out was performed to verify the patient's name, date of , and procedure to b e performed. The procedure including the risks, benefits, and alternatives was discussed with the pat ient. Risks discussed included bleeding and infection. The patient understood the risks and agreed to proceed. The skin overlying the right elbow joint was prepped and draped in usual sterile fashion. Anesthetic was administered with 1% lidocaine subcutaneously. A 22 G needle was advanced under fluo roscopic guidance into the joint. 2 mL fluid was aspirated. Subsequently, injectate consisting of 1 m L Omnipaque 240, 1 mL 1% lidocaine, and 2 mL 40 mg/mL Depo-Medrol was instilled. The needle was lovely tatianna and the entry site was cleaned and dressed. There were no immediate complications. Fluoroscopy e xposure time was 0.1 minutes. The total number of images was 2. FINDINGS: Real-time fluoroscopy demonstrates the needle in the right elbow joint. IMPRESSION: 1. Fluoroscopy guided right elbow joint aspiration yielding 2 mL clear, pale yellow fluid and subsequ ent injection of local anesthetic and steroid. Reviewed, dictated and finalized at location A. S DECORATOR IMPRESSION: 1. Fluoroscopy guided right elbow joint aspiration yielding 2 mL clear, pale ye llow fluid and subsequent injection of local anesthetic and steroid.
[2021-04-29 13:18] LABS: Appearance Synovial Fluid Hazy (Clear); Color Synovial Fluid Yellow (Colorless); Nucleated Cell Synovial Fluid 1225 /uL (0-200); RBC Synovial Fluid 8692 /uL (0-0); Source Synovial Fluid Synovial fluid
[2021-04-29 13:20] LABS: Lymphocytes Synovial Fluid 11 %; Monocytes Synovial Fluid 3 %; Neutrophils Synovial Fluid 86 % (0-25)
[2021-04-29 13:23] LABS: Crystals Synovial Fluid None Seen (None Seen)
== END 2021-04-29 10:35 | disposition home or self-care (01) ==
LOC: ANHIMG 10:35
PROVIDERS: PCP Family Medicine; Visit Provider Orthopaedic Surgery
DX: M19.021 Primary osteoarthritis, right elbow (principal)
CPT/HCPCS: 20605; 77002; 89051; 89060; J1030; Q9966

== ENCOUNTER 2021-11-20 00:20 | Day surgery (SDC) | payer OTHER, SELFPAY ==
[2021-11-12 09:10] VITALS: BMI 27.6
--- NOTE | 2021-11-19 13:12 | PM.HPGS ---
History of Present Illness History of Present Illness Consent: Risks, benefits, and alternatives have been discussed and questions answered. Patient agrees to proceed with procedure. Chief complaint: Rectal Bleeding Narrative: Marimar Hernandez is a 66 year old male who has recently seen blood in his stools. He has also had rectal discomfort. He takes diclofenac daily. Review of Systems Review of Systems: All systems reviewed & are unremarkable except as noted in HPI and below PMFSH Past Medical History Medical History Adult BMI 26.0-26.9 kg/sq m Essential hypertension Gout Hypothyroidism Intermittent asthma Osteoarthritis Surgical History Surgical History History of appendectomy History of arthroplasty of right knee (~05/14/20) History of orthopedic surgery Including open lateral meniscectomy on the right knee, left ankle reconstruction, and right although surgery. Family History Family History Mother Hypertension Arthritis Father Cancer Sibling Hypertension Social History Social History Social History: Surrogate decision maker: Chiquita Hernandez, spouse. Code status: Full code. Smoking packs per day: 1 Smoking cigarettes per day: 20.0 Years smoked: 20 Smoking pack-years: 20.00 Smoking status: Former smoker Tobacco type: cigarettes Smokeless tobacco user: chewing tobacco Second hand tobacco smoke exposure: No Smoking end date: 04/04/09 Additional smoking assessment comments: currently chews tobacco - no longer smokes Alcohol intake: current Drinks per week: 2 Alcohol use details: socially Substance use: never Substance use type: does not use Living arrangements: with family Additional living arrangements comments: The patient lives in [place] with his . 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 Gender identity (if verbalized by the patient): Male Spiritual care concerns: No Meds Home Medications and Allergies Home Medications Medication Instructions Recorded Confirmed Type diclofenac sodium 75 mg 75 mg PO BID #60 tabs 05/25/21 11/20/21 Rx tablet,delayed release losartan 50 mg tablet 50 mg PO DAILY 06/09/21 11/20/21 History levothyroxine 175 mcg tablet 175 mcg PO DAILY #90 tabs 04/11/22 08/19/22 Rx sodium sul 1.479 gram-potas ch See Rx Instructions PO PER PKG DIR 09/28/21 11/20/21 Rx 0.188 gram-magnes sul 0.225 gram #24 tabs tablet (Sutab) colchicine 0.6 mg capsule 0.6 mg PO DAILY PRN Pain 11/12/21 11/20/21 History hydroxychloroquine 200 mg tablet 400 mg PO DAILY 11/12/21 11/20/21 History umeclidinium 62.5 mcg-vilanterol 2 inh inhalation DAILY 11/12/21 11/20/21 History 25 mcg/actuation powdr for inhalation (Anoro Ellipta) Allergies Allergy/AdvReac Type Severity Reaction Status Date / Time No Known Allergies Allergy Verified 11/20/21 06:12 Exam Const: General: alert Orientation/consciousness: patient oriented x3 Resp: Auscultation: clear to auscultation bilaterally Cardio: Rhythm: regular rhythm GI: GI Palp: Yes Soft to palpation and No Tenderness to palpation present (GI) Neuro: General: patient oriented x3 Assessment and Plan Assessment and plan (1) Rectal bleeding: Code(s): K62.5 - Hemorrhage of anus and rectum Status: Acute Assessment and Plan: Colonoscopy with possible biopsy or polypectomy or cautery or injection of substances.
[2021-11-20 06:14] VITALS: BP 136/89; PULSE 67; RESP 16; TEMP 36.2; O2SAT 95
[2021-11-20] MEDS: LACTATED RINGERS 1,000 ML 150 ML IV CONT (06:28)
--- NOTE | 2021-11-20 07:24 | WPDANESEPPF ---
Anes - Initial Pre Proc Eval Procedure: Operation Date: 11/20/21 07:30 Proposed Procedures p Colonoscopy - Donell Molina MD Date/Time: 11/20/21 07:24 Surgeon: Donell Molina MD Pre Op Diagnosis: Rectal Bleeding Patient Data Age: 66 Gender: M Height: 1.88 m Weight: 93.6 kg Last Vital Signs Temp 97.2 F L 11/20/21 06:14 Pulse 67 11/20/21 06:14 Resp 16 11/20/21 06:14 BP 136/89 11/20/21 06:14 Pulse Ox 95 11/20/21 06:14 O2 Del Method Room Air 11/20/21 06:14 Allergies Allergy/AdvReac Type Severity Reaction Status Date / Time No Known Allergies Allergy Verified 11/20/21 06:12 Home Medications Medication Instructions Recorded Confirmed Type diclofenac sodium 75 mg 75 mg PO BID #60 tabs 05/25/21 11/20/21 Rx tablet,delayed release losartan 50 mg tablet 50 mg PO DAILY 06/09/21 11/20/21 History levothyroxine 175 mcg tablet 175 mcg PO DAILY #90 tabs 07/13/21 11/20/21 Rx sodium sul 1.479 gram-potas ch See Rx Instructions PO PER PKG DIR 09/28/21 11/20/21 Rx 0.188 gram-magnes sul 0.225 gram #24 tabs tablet (Sutab) colchicine 0.6 mg capsule 0.6 mg PO DAILY PRN Pain 11/12/21 11/20/21 History hydroxychloroquine 200 mg tablet 400 mg PO DAILY 11/12/21 11/20/21 History umeclidinium 62.5 mcg-vilanterol 2 inh inhalation DAILY 11/12/21 11/20/21 History 25 mcg/actuation powdr for inhalation (Anoro Ellipta) Patient hx anesthesia problems: none Family hx anesthesia problems: none Results Review: All pre-operative results and documents have been reviewed as part of the pre-operative evaluation. [facility] Past Medical History Medical History Adult BMI 26.0-26.9 kg/sq m Essential hypertension Gout Hypothyroidism Intermittent asthma Osteoarthritis Surgical History Surgical History History of appendectomy History of arthroplasty of right knee (~05/14/20) History of orthopedic surgery Including open lateral meniscectomy on the right knee, left ankle reconstruction, and right although surgery. Family History Family History Mother Hypertension Arthritis Father Cancer Sibling Hypertension Social History Social History Social History: Surrogate decision maker: Chiquita Hernandez, spouse. Code status: Full code. Smoking packs per day: 1 Smoking cigarettes per day: 20.0 Years smoked: 20 Smoking pack-years: 20.00 Smoking status: Former smoker Tobacco type: cigarettes Smokeless tobacco user: chewing tobacco Second hand tobacco smoke exposure: No Smoking end date: 04/04/09 Additional smoking assessment comments: currently chews tobacco - no longer smokes Alcohol intake: current Drinks per week: 2 Alcohol use details: socially Substance use: never Substance use type: does not use Living arrangements: with family Additional living arrangements comments: The patient lives in [place] with his . 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 Gender identity (if verbalized by the patient): Male Spiritual care concerns: No Anes - Eval Final PreProcedure Day of Procedure 11/20/21 07:24 Patient weight: normal Heart: regular rate and rhythm Lungs: clear to auscultation Airway: Mallampati scale class II Neurological: alert and oriented Last oral intake: >/= 8 hours ASA classification: II Emergent: no Anesthetic plan: proceed Anesthesia type and monitoring: general GIVS and standard monitoring Results Review: All pre-operative results and documents have been reviewed as part of the pre-operative evaluation. Informed Consent: The patient's anesthetic plan and its attendant risks and benefits were discussed with the patient/family/POA. Questions were so
[2021-11-20] MEDS: SIMETHICONE ORAL SUSPENSION 20 MG/0.3 ML 30 ML BOTTLE 0.6 ML IRRIGATION (07:33)
[2021-11-20 07:43] VITALS: BP 120/78; PULSE 63; RESP 15; O2SAT 97
[2021-11-20 07:53] VITALS: BP 131/80; PULSE 58; RESP 19; O2SAT 95
[2021-11-20 08:03] VITALS: BP 133/82; PULSE 55; RESP 16; O2SAT 93
== END 2021-11-20 08:10 | disposition home or self-care (01) ==
PROVIDERS: PCP Family Medicine; Visit Provider Internal Medicine Gastroenterology
PROC: 0DJD8ZZ Inspection of Lower Intestinal Tract, Via Natural or Artificial Opening Endoscopic (ICD-10-PCS; CPT 45378; principal; 2021-11-20 07:30)
DX: Z12.11 Encounter for screening for malignant neoplasm of colon (principal); K64.8 Other hemorrhoids; K57.30 Diverticulosis of large intestine without perforation or abscess without bleeding; K62.5 Hemorrhage of anus and rectum; Z86.010 Personal history of colon polyps; I10 Essential (primary) hypertension; E03.9 Hypothyroidism, unspecified; J45.909 Unspecified asthma, uncomplicated; M10.9 Gout, unspecified; M19.90 Unspecified osteoarthritis, unspecified site; F17.220 Nicotine dependence, chewing tobacco, uncomplicated; Z79.51 Long term (current) use of inhaled steroids; Z79.1 Long term (current) use of non-steroidal anti-inflammatories (NSAID)
CPT/HCPCS: 45378; J2704; J7120

== ENCOUNTER 2024-07-23 16:34 | Outpatient (CLI) | payer OTHER, SELFPAY ==
--- NOTE | ~2024-07-23 | XR_ITS ---
EXAMINATION: XR chest 2V Exam Date/Time: 07/23/2024 16:55 CDT HISTORY: J20.9 - Acute bronchitis, unspecified Comparison: 04/28/2020. RESULT: Lines, tubes, and devices: None. Lungs and pleura: Subsegmental bibasilar airspace disease. Linear bibasilar scar/atelectasis. Nodula r opacities project over the bilateral peripheral lower lungs. Cardiomediastinal silhouette: Stable. Other: No acute osseous or upper abdominal finding. IMPRESSION: Nodular opacities over the bilateral lower lungs, may represent nodules or summation artifact or nipp le shadows. Consider radiographic follow-up after the resolution of acute symptoms to evaluate for pe rsistence or consider low-dose noncontrast CT of the chest. Subsegmental bibasilar atelectasis/consolidation. Reviewed, dictated and finalized at [facility]. IMPRESSION: Nodular opacities over the bilateral lower lungs, may represent nodules or summ ation artifact or nipple shadows. Consider radiographic follow-up after the res olution of acute symptoms to evaluate for persistence or consider low-dose nonc ontrast CT of the chest. Subsegmental bibasilar atelectasis/consolidation.
== END 2024-07-23 16:35 | disposition home or self-care (01) ==
LOC: MICIMG 16:35
PROVIDERS: PCP Family Medicine; Visit Provider Physician Assistant Medical
DX: J20.9 Acute bronchitis, unspecified (principal); R91.8 Other nonspecific abnormal finding of lung field
CPT/HCPCS: 71046